=== PATIENT | male | born 1985 | race Caucasian/White ===

== ENCOUNTER 2023-07-18 16:14 | Emergency (ER) | payer MEDICAID, SELFPAY ==
[2023-07-18] VITALS (7 sets, daily range): BP systolic 110–125; BP diastolic 67–91; PULSE 45–69; RESP 12–20; TEMP 36.6–36.7; O2SAT 92–98
--- NOTE | ~2023-07-18 | XR_ITS ---
EXAMINATION: XR chest 2V Exam Date/Time: 07/18/2023 16:40 CDT HISTORY: CP INTERMITTENTLY X 2 WEEKS Comparison: None. RESULT: Lines, tubes, and devices: Right chest port terminating in the distal SVC. Lungs and pleura: Clear. Cardiomediastinal silhouette: Normal. Other: No acute osseous or upper abdominal finding. IMPRESSION: No acute cardiopulmonary process. Reviewed, dictated and finalized at location K.
--- NOTE | 2023-07-18 16:18 | ECG_ITS ---
[facility] [address] Test Date: 2023-07-18 Pat Name: Bryon Coyle Department: Room: Gender: M Licensed Acupuncturist: : 1985 Requested By: Bao Ceja Order Number: [id number] Katherine MD: Luis Felipe Morgan D.O. Measurements Intervals [place] Rate: 51 P: -7 AR: 170 QRS: -7 QRSD: 116 T: 28 QT: 464 QTc: 428 Interpretive Statements SINUS BRADYCARDIA INTRAVENTRICULAR CONDUCTION DELAY BORDERLINE ECG No previous ECG available for comparison Electronically Signed On 07-18-2023 17:01:26 CDT by Luis Felipe Morgan D.O.
[2023-07-18 16:45] LABS: Basophils Percent Auto 0.4 % (0.2-1.2); Eosinophils Absolute Auto 0.1 K/mm3 (0-0.3); Eosinophils Percent Auto 0.7 % (0-4.4); Hematocrit 40.6 % (42.0-52.0); Hemoglobin 14.2 g/dL (14.0-18.0); Immature Granulocyte Absolute 0.06 K/mm3 (0.00-0.031); Immature Granulocyte Percent A 0.6 % (0-0.5); Lymphocytes Absolute Auto 1.37 K/mm3 (0.9-3.2); Lymphocytes Percent Auto 13.6 % (18.3-44.2); Mean Corpuscular Hemoglobin 31.9 pg (26-34); Mean Corpuscular Volume 91.2 fl (80-100); Mean Platelet Volume 10.8 fl (7.4-10.4); Monocytes Absolute Auto 0.5 K/mm3 (0.1-0.6); Monocytes Percent Auto 5.4 % (2.6-8.5); Neutrophils Percent Auto 79.3 % (45.5-73.1); Platelet Count Result 207 k/mm3 (150-375); Red Blood Count 4.45 M/mm3 (4.6-6.20); Red Cell Distribution Width 12.2 % (11.5-14.5); White Blood Count 10.1 K/mm3 (4.5-10.0)
[2023-07-18 16:55] LABS: Prothrombin Time 13.7 Seconds (11.1-14.7)
[2023-07-18 16:56] LABS: Partial Thromboplastin Time 27.9 Seconds (22.3-36.8)
[2023-07-18 16:59] LABS: Alanine Aminotransferase 18 U/L (6-50); Albumin Level 4.4 g/dL (3.5-5.1); Alkaline Phosphatase 67 U/L (38-126); Anion Gap 6 mmol/L (4-12); Aspartate Amino Transferase 25 U/L (17-59); Bilirubin,Total 0.8 mg/dL (0.2-1.3); Blood Urea Nitrogen 5 mg/dL (9-20); Calcium 9.3 mg/dL (8.4-10.2); Carbon Dioxide 26 mmol/L (22-30); Chloride 106 mmol/L (98-107); Estimated CRCL calculation 151 ml/min; Estimated Glomerular Filt Rate > 60; Glucose 97 mg/dL (65-110); Lipase 131 U/L (23-300); Potassium 3.6 mmol/L (3.4-5.0); Sodium 138 mmol/L (137-145)
[2023-07-18 17:10] LABS: Troponin I < 0.012 ng/mL (0.000-0.034)
--- NOTE | 2023-07-18 18:12 | ED.CHESTPAIN ---
HPI - Chest Pain General Chief Complaint: Chest Pain Stated Complaint: chest tightness, sob Time Seen by Provider: 07/18/23 16:34 History of Present Illness HPI narrative: 38-year-old male presenting to the emergency department for evaluation for chest pain and feeling lightheaded. Patient states prior to arrival his car broke down and he is still in with the tow truck when he had onset of chest tightness lightheadedness and dizziness. Patient states he did have some chest pain but this was only short lasting. Upon arrival emergency department patient states he does feel improved. Patient denies any current lightheadedness or dizziness patient denies any current chest pain. Patient states he does not typically have anxiety but that and with him being worked up and having a current Holter monitor and place he thinks that he may be more anxious. Related Data Allergies Allergy/AdvReac Type Severity Reaction Status Date / Time No Known Allergies Allergy Verified 07/18/23 16:28 Review of Systems Review of Systems: All systems reviewed & are unremarkable except as noted in HPI and below Exam Narrative: APPEARANCE: Well appearing, no pain, no distress, well-nourished. HEAD: normocephalic, atraumatic. EYES: PERRLA/EOMI, conjunctivae clear. NOSE: Normal no drainage EARS:TMS clear with good light reflex. THROAT: Pharynx clear, no exudate. NECK: Supple. No adenopathy, no masses. RESPIRATORY: Airway patent, respirations nonlabored. Clear to auscultation bilaterally, no rales, rhonchi, wheezing. CARDIOVASCULAR: Regular rate and rhythm without murmurs rubs or gallops. ABDOMINAL: Soft, nontender, nondistended, normal bowel sounds MUSCULOSKELETAL: Moves all extremities. Strength/ROM intact, No edema, No calf tenderness. NEURO: Alert. Cranial nerves II through XII intact. grossly intact SKIN: Warm, dry. Normal Color Course Vital Signs Vital signs: Vital Signs Pulse Rate 54 L 07/18/23 16:26 Respiratory Rate 12 07/18/23 16:26 Blood Pressure 121/73 07/18/23 16:26 Pulse Oximetry 92 07/18/23 16:26 Temperature 98.0 F 07/18/23 18:26 Pulse Rate 69 07/18/23 20:20 Respiratory Rate 16 07/18/23 20:20 Blood Pressure 123/73 07/18/23 20:20 Pulse Oximetry 95 07/18/23 20:20 Oxygen Delivery Room Air 07/18/23 19:14 MDM - Chest Pain MDM Narrative Medical decision making narrative: 38-year-old male present to the emergency department for evaluation for chest pressure chest tightness. patient's symptoms resolved emergency department. Patient is afebrile but does have a minor leukocytosis of 10.1. Hemoglobin stable at 14.2. No acute abnormalities on the patient's CMP and patient had negative serial troponins. Patient's D-dimer was not elevated. Chest x-ray showed no acute cardiopulmonary abnormality. Patient was updated results of his workup. Patient was comfortable with plan for discharge and close follow-up. Patient suspects that this was most likely anxiety due to his current cardiac workup and wearing of the Holter monitor. Differential Diagnosis Differential diagnosis: Likely fracture of rib, pneumothorax, stable angina, unstable angina pectoris, atypical chest pain and chest pain Lab Data Attestation: I reviewed the patient's lab results. 07/18/23 16:41 07/18/23 16:41 Labs: Lab Results 07/18/23 07/18/23 07/18/23 Range/Units 16:40 16:41 19:12 WBC 10.1 H (4.5-10.0) K/mm3 RBC 4.45 L (4.6-6.20) M/mm3 Hgb 14.2 (14.0-18.0) g/dL Hct 40.6 L (42.0-52.0) % MCV 91.2 (80-100) fl MCH 31.9 (26-34) pg MCHC 35.0 (32-36) g/dl RDW 12.2 (11.5-14.5) % Plt Count 207 (150-375) k/mm3 MPV 10.8 H (7.4-10.4) fl Immature Gran % (Auto) 0.6 H (0-0.5) % Neut % (Auto) 79.3 H (45.5-73.1) % Lymph % (Auto) 13.6 L (18.3-44.2) % [place] % (Auto) 5.4 (2.6-8.5) % Eos % (Auto) 0.7 (0-4.4) % Baso % (Auto) 0.4 (0.2-1.2
--- NOTE | 2023-07-18 19:07 | ECG_ITS ---
[facility] [address] Test Date: 2023-07-18 Pat Name: Bryon Coyle Department: Room: Gender: M Sp[employer]: : 1985 Requested By: Johnny Mon Order Number: [id number] Katherine MD: Luis Felipe Morgan D.O. Measurements Intervals [place] Rate: 46 P: 27 MO: 173 QRS: 11 QRSD: 114 T: 30 QT: 511 QTc: 447 Interpretive Statements SINUS BRADYCARDIA INTRAVENTRICULAR CONDUCTION DELAY MINIMAL Q WAVES- LAT/HIGH LAT LEADS ABNORMAL ECG Compared to ECG 07/18/2023 16:21:45 HEART RATE HAS DECRASED Electronically Signed On 07-18-2023 21:34:45 CDT by Luis Felipe Morgan D.O.
[2023-07-18 19:43] LABS: Troponin I < 0.012 ng/mL (0.000-0.034)
[2023-07-18 20:08] LABS: D Dimer < 0.27 ug/mL (<0.48)
== END 2023-07-18 20:22 | disposition home or self-care (01) ==
PROVIDERS: Preventive Medicine Aerospace Medicine; Emergency Provider Emergency Medicine
DX: R07.89 Other chest pain (principal)
CPT/HCPCS: 36415; 71046; 80053; 83690; 84484; 85025; 85380; 85610; 85730; 93005; 99284